=== PATIENT | male | born 1975 | race Caucasian/White ===

== ENCOUNTER 2016-04-11 12:38 | Inpatient (IN) | payer OTHER ==
[2016-04-11 17:07] VITALS: BMI 19.5
--- NOTE | 2016-04-11 18:30 | HP ---
CIWA Score - CIWA Score Nausea/Vomitin Muscle Tremors: 4-Moderate,w/Arms Extend Anxiety: 4-Mod. Anxious/Guarded Agitation: 4-Moderately Restless Paroxysmal Sweats: 3 Orientation: 1-Uncertain about Date Tacttile Disturbances: 0-None Auditory Disturbances: 0-None Visual Disturbances: 0-None Headache: 0-None Present CIWA-Ar Total Score: 18 Admission ROS BHS - HPI Chief Complaint: Withdrawal sx. Allergies/Adverse Reactions: Allergies Allergy/AdvReac Type Severity Reaction Status Date / Time No Known Allergies Allergy Verified 04/11/16 18:22 History of Present Illness: 40 y/o man with a long hx. of alcoholism is admitted for detox.Pt. has been in previous detox, denies significant sobriety Exam Limitations: No Limitations - Ebola screening Have you traveled outside of the country in the last 21 days: No Have you had contact with anyone from an Ebola affected area: No Have you been sick,other than usual withdrawal symptoms: No Do you have a fever: No - Review of Systems Constitutional: Diaphoresis EENT: reports: No Symptoms Reported Respiratory: reports: No Symptoms reported Cardiac: reports: No Symptoms Reported GI: reports: Nausea, Abdominal cramping : reports: No Symptoms Reported Musculoskeletal: reports: Back Pain, Joint Pain Integumentary: reports: Sweating Neuro: reports: Tremors Endocrine: reports: No Symptoms Reported Hematology: reports: No Symptoms Reported Psychiatric: reports: No Sypmtoms Reported Other Systems: Reviewed and Negative Patient History - Patient Medical History Hx Anemia: No Hx Asthma: No Hx Chronic Obstructive Pulmonary Disease (COPD): No Hx Cancer: No Hx Cardiac Disorders: No Hx Congestive Heart Failure: No Hx Hypertension: No Hx Hypercholesterolemia: No Hx Pacemaker: No HX Cerebrovascular Accident: No Hx Seizures: Yes Hx Dementia: No Hx Diabetes: No Hx Gastrointestinal Disorders: Yes (dyspepsia,on zantac) Hx Liver Disease: Yes (treated for Hep C) Hx Sexually Transmitted Disorders: No Hx Renal Disease (ESRD): No Hx Thyroid Disease: No Hx Human Immunodeficiency Virus (HIV): No Hx Hepatitis C: Yes (treated) Hx Depression: Yes Hx Suicide Attempt: Yes (cut wrist) Hx Bipolar Disorder: Yes Hx Schizophrenia: No (not sure) - Patient Surgical History Past Surgical History: Yes Other Surgical History: Skin graft rt. cva Anesthesia Reaction: No - PPD History Previous Implant?: Yes Documented Results: Negative w/o proof PPD to be Administered?: Yes - Smoking Cessation Smoking history: Current every day smoker Aproximately how many cigarettes per day: 20 Hx Chewing Tobacco Use: No Initiated information on smoking cessation: Yes 'Breaking Loose' booklet given: 04/11/16 - Substance & Tx. History Hx Alcohol Use: Yes Hx Substance Use: Yes Substance Use Type: Alcohol Hx Substance Use Treatment: Yes (detox,OTP) - Substances Abused Alcohol Route: Oral Frequency: Daily Amount used: Rum 1-2 pint, Beer 1 6packs Age of first use: 17 Date of Last Use: 04/11/16 Crack Route: Smoking Frequency: Daily Amount used: $60.00 Age of first use: 17 Date of Last Use: 04/11/16 Family Disease History - Family Disease History Family Disease History: Diabetes: Father, Heart Disease: Mother (HTN) Admission Physical Exam [facility] - Vital Signs Vital Signs: Vital Signs - 24 hr 04/11/16 17:06 Temperature 98.5 F Pulse Rate 78 Respiratory 18 Rate Blood Pressure 124/80 - Physical General Appearance: Yes: Tremorous, Irritable, Sweating, Anxious HEENTM: Yes: Within Normal Limits Respiratory: Yes: Chest Non-Tender, Wheezing (mild expiratory from smoking) Neck: Yes: Supple Breast: Yes: Breast Exam Deferred Cardiology: Yes: Regular Rhythm, Regular Rate, S1, S2 Abdominal: Yes: Normal Bowel Sounds, Non Tender, Soft Genitourinary: Yes: Within Normal Limits Back: Yes: Within Normal Limits Musculoskeletal: Yes: Within Normal Limits Extremities: Yes: Tremors Neurological: Yes: Fully Oriented, Alert Integumentary: Yes: Diaphoresis Lymphatic: Yes: Within Normal Limits - Diagnostic (1) Alcohol dependence with uncomplicated withdrawal Current Visit: Yes Status: Acute (2) Opioid dependence on agonist therapy Current Visit: Yes Status: Acute (3) Cocaine dependence, uncomplicated Current Visit: Yes Status: Acute (4) Seizure disorder Current Visit: Yes Status: Acute Cleared for Admission [facility] - Detox or Rehab [facility] Level of Care: Medically Managed Detox Regimen/Protocol: Librium [facility] Breath Alcohol Content Breath Alcohol Content: 0 Urine Drug Screen - Results Drug Screen Negative: No Urine Drug Screen Results: BARBARA-Cocaine, OPI-Opiates, MTD-Methadone
[2016-04-11] MEDS ORDERED: MAGNESIUM HYDROX 2400MG/30ML ORAL SUSPENSION 30 ML CUP PO PRN (18:45)
[2016-04-11] MEDS ORDERED: guaiFENesin/D-METHORPHAN HB 10 ML UNIT-DOSE CUPS PO PRN (18:45)
[2016-04-11] MEDS ORDERED: NICOTINE POLACRILEX 2 MG GUM BC PRN (18:45)
[2016-04-11] MEDS ORDERED: MAGNESIUM CITRATE 300 ML BOTTLE PO PRN (18:45)
[2016-04-11] MEDS ORDERED: LOPERAMIDE HCL 2 MG CAPSULE PO PRN (18:45)
[2016-04-11] MEDS ORDERED: chlordiazePOXIDE HCL 25 MG CAPSULE PO PRN (18:45)
[2016-04-11] MEDS ORDERED: MAG HYDROX/AL HYDROX/SIMETH 30 ML UNIT-DOSE CUP PO PRN (18:45)
[2016-04-11] MEDS ORDERED: ACETAMINOPHEN 325 MG TABLET (FP) PO PRN (18:45)
[2016-04-11] MEDS ORDERED: diphenhydrAMINE HCL 50 MG CAPSULE PO PRN (18:45)
[2016-04-11] MEDS ORDERED: P-EPHED 60MG/TRIPROLIDI 2.5MG TABLET PO PRN (18:45)
[2016-04-11] MEDS ORDERED: MENTHOL/PHENOL 1 EACH UD MM PRN (18:45)
[2016-04-11] MEDS ORDERED: ALBUTEROL SO4 6.7 GM HFA INHALER IH PRN (18:49)
[2016-04-11] MEDS ORDERED: chlordiazePOXIDE HCL 25 MG CAPSULE PO ONE (19:00)
[2016-04-11] MEDS: NICOTINE 21 MG/24 HOURS TOPICAL PATCH TD SCH (19:48)
[2016-04-11] MEDS ORDERED: DIVALPROEX SODIUM 500 MG TABLET E.C. PO SCH (22:00)
[2016-04-11] MEDS: chlordiazePOXIDE HCL 25 MG CAPSULE PO SCH (22:11)
[2016-04-11] MEDS: THIAMINE HCL 100 MG TABLET (FP) PO SCH (22:11)
[2016-04-11] MEDS: PHENYTOIN NA EXTENDED 100 MG CAPSULE (FP) PO SCH (22:11)
[2016-04-11] MEDS: ACLIDINIUM BROMIDE 400 MCG/INH AERO.POWD IH SCH (23:00)
[2016-04-11 23:18] LABS: URINE APPEARANCE CLEAR; URINE BILIRUBIN NEGATIVE (NEGATIVE); URINE BLOOD NEGATIVE (NEGATIVE); URINE COLOR LTYELLOW; URINE GLUCOSE (UA) NEGATIVE (NEGATIVE); URINE KETONE NEGATIVE (NEGATIVE); URINE LEUK ESTERASE NEGATIVE (NEGATIVE); URINE NITRITE NEGATIVE (NEGATIVE); URINE PROTEIN NEGATIVE (NEGATIVE); URINE UROBILINOGEN NEGATIVE E.U./dl (0.2-1.0)
[2016-04-12] MEDS: PHENYTOIN NA EXTENDED 100 MG CAPSULE (FP) PO SCH ×3 (05:42→22:28)
[2016-04-12] MEDS: chlordiazePOXIDE HCL 25 MG CAPSULE PO SCH ×4 (05:42→22:28)
--- NOTE | 2016-04-12 08:32 | CONSULT ---
[facility] Psychiatric Consult - Data Date of interview: 04/12/16 Admission source: [facility] Identifying data: This is 40 years old uruguayan speaking male male with history of Bipolar disorder intoxicated with: Alcohol, Cocaine and Opioids Substance Abuse History: Smoking history: Current every day smoker. Aproximately how many cigarettes per day: 20. Hx Chewing Tobacco Use: No. Initiated information on smoking cessation: Yes. 'Breaking Loose' booklet given : 04/11/16. - Substance & Tx. History. Hx Alcohol Use: Yes. Hx Substance Use : Yes. Substance Use Type: Alcohol. Hx Substance Use Treatment: Yes (detox,OTP ). - Substances Abused. Alcohol. Route: Oral. Frequency: Daily. Amount used: Rum 1-2 pint, Beer 1 6packs. Age of first use: 17. Date of Last Use: . Crack. Route: Smoking. Frequency: Daily. Amount used: $60.00. Age of first use: 17. Date of Last Use: 04/11/16 Medical History: Seizure history, Psychiatric History: Patient reports to carry Bipolar disorder with most recenmt psychiatric hospitalization at [facility], reports currently taking: Depakote 500mg po bid. Zoloft 50mg poqd. [id number] poqd Physical/Sexual Abuse/Trauma History: Denies Additional Comment: Depakote 500mg po bid. Zoloft 50mg poqd. [id number] poqd Mental Status Exam - Mental Status Exam Alert and Oriented to: Person Cognitive Function: Fair Patient Appearance: Well Groomed Mood: Anxious Affect: Mood Congruent Patient Behavior: Cooperative Speech Pattern: Appropriate Voice Loudness: Normal Thought Process: Goal Oriented Thought Disorder: Being Controlled Hallucinations: Denies Suicidal Ideation: Denies Homicidal Ideation: Denies Insight/Judgement: Fair Sleep: Difficulty falling asleep Appetite: Weight loss Muscle strength/Tone: Normal Gait/Station: Normal Additional Comments: Depakote 500mg po bid. Zoloft 50mg poqd. [id number] poqd Psychiatric Findings - Problem List (Alexander 1, 2,3) (1) Alcohol dependence with uncomplicated withdrawal Current Visit: Yes Status: Acute (2) Cocaine dependence, uncomplicated Current Visit: Yes Status: Acute (3) Opioid dependence on agonist therapy Current Visit: Yes Status: Acute (4) Bipolar disorder Current Visit: Yes Status: Acute (5) Drug-induced mood disorder Current Visit: Yes Status: Acute - Initial Treatment Plan Initial Treatment Plan: Depakote 500mg po bid. Zoloft 50mg poqd. [id number] poqd. Blood Depakote level
[2016-04-12 10:05] LABS: MCH 30.6 pg (25.7-33.7); MCHC 33.6 g/dl (32.0-35.9); MEAN CELL VOLUME 91.1 fl (80-96); MEAN PLT VOLUME 9.6 fl (7.5-11.1); PLATELET COUNT 145 K/MM3 (134-434); RDW 13.5 % (11.9-15.9); WHITE BLOOD COUNT 12.4 K/mm3 (4.0-10.0)
[2016-04-12 10:32] LABS: ALBUMIN 3.7 g/dl (3.4-5.0); ALK PHOS 60 U/L (45-117); ANION GAP 9 (8-16); BILIRUBIN,TOTAL 0.4 mg/dL (0.2-1.0); CALCIUM 8.7 mg/dL (8.5-10.1); CO2 28 mmol/L (21-32); CREATININE 0.8 mg/dL (0.7-1.3); GLUCOSE,RANDOM 81 mg/dL (74-106); SGOT/AST 16 U/L (15-37); SGPT/ALT 16 U/L (12-78); TOT PROT 6.9 g/dl (6.4-8.2)
[2016-04-12] MEDS: PRENATAL VITAMINS W/ FOLIC ACID TABLET (FP) PO SCH (11:40)
[2016-04-12] MEDS: SERTRALINE HCL 50 MG TABLET (FP) PO SCH (11:41)
[2016-04-12 11:42] LABS: VALPROIC ACID DEPAKOTE DEPAKAN 41.306 ug/ml (50-100)
[2016-04-12] MEDS: CITALOPRAM HYDROBROMIDE 10 MG TABLET (FP) PO SCH ×2 (11:42→12:30)
[2016-04-12] MEDS: NICOTINE 21 MG/24 HOURS TOPICAL PATCH TD SCH (11:57)
[2016-04-12] MEDS: ACLIDINIUM BROMIDE 400 MCG/INH AERO.POWD IH SCH ×2 (13:23→22:28)
[2016-04-12] MEDS ORDERED: METHADONE HCL 10 MG TABLET PO ONE (14:15)
[2016-04-12] MEDS ORDERED: METHADONE 80 MG, METHADONE 30 MG PO ONE (14:35)
[2016-04-12] MEDS ORDERED: METHADONE HCL 10 MG TABLET ONE (14:38)
[2016-04-12] MEDS ORDERED: METHADONE HCL 40 MG DISPERSABLE TABLET ONE (14:39)
--- NOTE | 2016-04-12 14:47 | PN ---
[facility] CIWA - CIWA Score Nausea/Vomitin-No Nausea/No Vomiting Muscle Tremors: 3 Anxiety: 3 Agitation: 3 Paroxysmal Sweats: 3 Orientation: 0-Oriented Tacttile Disturbances: 0-None Auditory Disturbances: 0-None Visual Disturbances: 0-None Headache: 0-None Present CIWA-Ar Total Score: 12 S Progress Note (SOAP) Subjective: sleepy sweats tired interrupted sleep Objective: 04/12/16 14:46 Vital Signs Temperature 99.1 F 04/12/16 13:54 Pulse Rate 82 04/12/16 13:54 Respiratory Rate 16 04/12/16 13:54 Blood Pressure 129/76 04/12/16 13:54 O2 Sat by Pulse Oximetry (%) Laboratory Tests 04/11/16 04/12/16 04/12/16 19:47 06:10 06:10 WBC 12.4 H RBC 4.31 Hgb 13.2 Hct 39.2 MCV 91.1 MCHC 33.6 RDW 13.5 Plt Count 145 MPV 9.6 Sodium 140 Potassium 4.6 Chloride 103 Carbon Dioxide 28 Anion Gap 9 BUN 11 Creatinine 0.8 Creat Clearance w eGFR > 60 Random Glucose 81 Calcium 8.7 Total Bilirubin 0.4 AST 16 ALT 16 Alkaline Phosphatase 60 Total Protein 6.9 Albumin 3.7 Urine Color Ltyellow Urine Appearance Clear Urine pH 7.0 Ur Specific [place] 1.009 Urine Protein Negative Urine Glucose (UA) Negative Urine Ketones Negative Urine Blood Negative Urine Nitrite Negative Urine Bilirubin Negative Urine Urobilinogen Negative Ur Leukocyte Esterase Negative Phenytoin Valproic Acid RPR Titer 04/12/16 04/12/16 06:10 06:20 WBC RBC Hgb Hct MCV MCHC RDW Plt Count MPV Sodium Potassium Chloride Carbon Dioxide Anion Gap BUN Creatinine Creat Clearance w eGFR Random Glucose Calcium Total Bilirubin AST ALT Alkaline Phosphatase Total Protein Albumin Urine Color Urine Appearance Urine pH Ur Specific [place] Urine Protein Urine Glucose (UA) Urine Ketones Urine Blood Urine Nitrite Urine Bilirubin Urine Urobilinogen Ur Leukocyte Esterase Phenytoin < 2.5 L Valproic Acid 41.306 L RPR Titer Nonreactive awake/alert ambulating no acute distress Assessment: 04/12/16 14:46 withdrawal sx Plan: continue detox increase fluids
--- NOTE | 2016-04-12 15:05 | EKG ---
Test Reason : Blood Pressure : / mmHG Vent. Rate : 053 BPM Atrial Rate : 053 BPM P-R Int : 168 ms QRS Dur : 094 ms QT Int : 486 ms P-R-T Axes : -16 -13 -08 degrees QTc Int : 456 ms POOR DATA QUALITY, INTERPRETATION MAY BE ADVERSELY AFFECTED SINUS BRADYCARDIA VOLTAGE CRITERIA FOR LEFT VENTRICULAR HYPERTROPHY NONSPECIFIC ST ABNORMALITY ABNORMAL ECG NO PREVIOUS ECGS AVAILABLE Confirmed by EJ BASSETT, ROLDAN ([id number]) on 04/12/2016 3:05:15 PM Referred By: Confirmed By:ROLDAN PAGAN MD
--- NOTE | 2016-04-12 15:08 | EKG ---
Test Reason : Blood Pressure : / mmHG Vent. Rate : 062 BPM Atrial Rate : 062 BPM P-R Int : 166 ms QRS Dur : 108 ms QT Int : 488 ms P-R-T Axes : 073 072 072 degrees QTc Int : 495 ms NORMAL SINUS RHYTHM POSSIBLE LEFT ATRIAL ENLARGEMENT LEFT VENTRICULAR HYPERTROPHY PROLONGED QT ABNORMAL ECG WHEN COMPARED WITH ECG OF 12-APR-2016 08:54, NO SIGNIFICANT CHANGE WAS FOUND Confirmed by EJ BASSETT, ROLDAN ([id number]) on 04/12/2016 3:07:31 PM Referred By: Confirmed By:ROLDAN PAGAN MD
[2016-04-12] MEDS: THIAMINE HCL 100 MG TABLET (FP) PO SCH (22:28)
[2016-04-12] MEDS: DIVALPROEX SODIUM 500 MG TABLET E.C. PO SCH (22:28)
[2016-04-13] MEDS ORDERED: METHADONE HCL 40 MG DISPERSABLE TABLET ONE (05:21)
[2016-04-13] MEDS ORDERED: METHADONE HCL 10 MG TABLET ONE (05:21)
[2016-04-13] MEDS: METHADONE 80 MG, METHADONE 30 MG PO SCH (05:50)
[2016-04-13] MEDS: PHENYTOIN NA EXTENDED 100 MG CAPSULE (FP) PO SCH ×3 (05:51→22:26)
[2016-04-13] MEDS: chlordiazePOXIDE HCL 25 MG CAPSULE PO SCH ×3 (05:51→17:36)
[2016-04-13] MEDS ORDERED: METHADONE HCL 10 MG TABLET PO SCH (06:00)
--- NOTE | 2016-04-13 09:01 | PN ---
[facility] CIWA - CIWA Score Nausea/Vomitin Muscle Tremors: 3 Anxiety: 3 Agitation: 2 Paroxysmal Sweats: 1-Minimal Palms Moist Orientation: 0-Oriented Tacttile Disturbances: 1-Very Mild Itch/Numbness Auditory Disturbances: 1-Very Mild Visual Disturbances: 1-Very Mild Sensitivity Headache: 2-Mild CIWA-Ar Total Score: 17 BHS Progress Note (SOAP) Subjective: ALERT,IRRITABLE,ANXIOUS,INTERRUPTED SLEEP,TREMOR Objective: 04/13/16 08:59 Vital Signs Temperature 98.2 F 04/13/16 06:30 Pulse Rate 61 04/13/16 06:30 Respiratory Rate 16 04/13/16 06:30 Blood Pressure 98/61 04/13/16 06:30 O2 Sat by Pulse Oximetry (%) Laboratory Last Values WBC 12.4 K/mm3 (4.0-10.0) H 04/12/16 06:10 RBC 4.31 M/mm3 (4.00-5.60) 04/12/16 06:10 Hgb 13.2 GM/dL (11.7-16.9) 04/12/16 06:10 Hct 39.2 % (35.4-49) 04/12/16 06:10 MCV 91.1 fl (80-96) 04/12/16 06:10 MCHC 33.6 g/dl (32.0-35.9) 04/12/16 06:10 RDW 13.5 % (11.9-15.9) 04/12/16 06:10 Plt Count 145 K/MM3 (134-434) 04/12/16 06:10 MPV 9.6 fl (7.5-11.1) 04/12/16 06:10 Sodium 140 mmol/L (136-145) 04/12/16 06:10 Potassium 4.6 mmol/L (3.5-5.1) 04/12/16 06:10 Chloride 103 mmol/L (98-107) 04/12/16 06:10 Carbon Dioxide 28 mmol/L (21-32) 04/12/16 06:10 Anion Gap 9 (8-16) 04/12/16 06:10 BUN 11 mg/dL (7-18) 04/12/16 06:10 Creatinine 0.8 mg/dL (0.7-1.3) 04/12/16 06:10 Creat Clearance w eGFR > 60 (>60) 04/12/16 06:10 Random Glucose 81 mg/dL (74-106) 04/12/16 06:10 Calcium 8.7 mg/dL (8.5-10.1) 04/12/16 06:10 Total Bilirubin 0.4 mg/dL (0.2-1.0) 04/12/16 06:10 AST 16 U/L (15-37) 04/12/16 06:10 ALT 16 U/L (12-78) 04/12/16 06:10 Alkaline Phosphatase 60 U/L (45-117) 04/12/16 06:10 Total Protein 6.9 g/dl (6.4-8.2) 04/12/16 06:10 Albumin 3.7 g/dl (3.4-5.0) 04/12/16 06:10 Urine Color Ltyellow 04/11/16 19:47 Urine Appearance Clear 04/11/16 19:47 Urine pH 7.0 (5.0-8.0) 04/11/16 19:47 Ur Specific [place] 1.009 (1.001-1.035) 04/11/16 19:47 Urine Protein Negative (NEGATIVE) 04/11/16 19:47 Urine Glucose (UA) Negative (NEGATIVE) 04/11/16 19:47 Urine Ketones Negative (NEGATIVE) 04/11/16 19:47 Urine Blood Negative (NEGATIVE) 04/11/16 19:47 Urine Nitrite Negative (NEGATIVE) 04/11/16 19:47 Urine Bilirubin Negative (NEGATIVE) 04/11/16 19:47 Urine Urobilinogen Negative E.U./dl (0.2-1.0) 04/11/16 19:47 Ur Leukocyte Esterase Negative (NEGATIVE) 04/11/16 19:47 Phenytoin < 2.5 ug/ml (10.0-20.0) L 04/12/16 06:10 Valproic Acid 41.306 ug/ml (50-100) L 04/12/16 06:10 RPR Titer Nonreactive (NONREACTIVE) 04/12/16 06:20 Hepatitis C Antibody >11.0 s/co ratio (0.0-0.9) H 04/12/16 06:10 Assessment: 04/13/16 09:00 WITHDRAWAL SYMPTOM Plan: CONTINUE DETOX,DILANTIN 300 MGS PO NOW THEN TID,DILANTIN LEVEL IS LOW 2.5, SEIZURE PRECAUTION, EXPLAIN TO PATIENT THE TEST FOR HEPATITIS C IS POSTIVE,PATIENT WILL GO TO SEE HES PMD AT [facility] FOR FOLLOW UP AND EVALUATION UPON DISCHARGE, REPEAT CBC,DILANTIN LEVEL IN AM
[2016-04-13] MEDS ORDERED: PHENYTOIN NA EXTENDED 100 MG CAPSULE (FP) PO ONE (09:12)
[2016-04-13] MEDS: PRENATAL VITAMINS W/ FOLIC ACID TABLET (FP) PO SCH (10:13)
[2016-04-13] MEDS: CITALOPRAM HYDROBROMIDE 10 MG TABLET (FP) PO SCH (10:13)
[2016-04-13] MEDS: SERTRALINE HCL 50 MG TABLET (FP) PO SCH (10:13)
[2016-04-13] MEDS: NICOTINE 21 MG/24 HOURS TOPICAL PATCH TD SCH (10:15)
[2016-04-13] MEDS: ACLIDINIUM BROMIDE 400 MCG/INH AERO.POWD IH SCH ×2 (10:15→22:24)
[2016-04-13] MEDS: chlordiazePOXIDE 5 MG CAPSULE PO SCH (22:24)
[2016-04-13] MEDS: DIVALPROEX SODIUM 500 MG TABLET E.C. PO SCH (22:25)
[2016-04-13] MEDS: THIAMINE HCL 100 MG TABLET (FP) PO SCH (22:26)
[2016-04-13] MEDS: IBUPROFEN 400 MG TABLET (FP) PO PRN (22:29)
[2016-04-14] MEDS ORDERED: METHADONE HCL 40 MG DISPERSABLE TABLET ONE (05:17)
[2016-04-14] MEDS ORDERED: METHADONE HCL 10 MG TABLET ONE (05:17)
[2016-04-14] MEDS: METHADONE 80 MG, METHADONE 30 MG PO SCH (05:18)
[2016-04-14] MEDS: chlordiazePOXIDE 5 MG CAPSULE PO SCH ×3 (05:18→18:02)
[2016-04-14] MEDS: PHENYTOIN NA EXTENDED 100 MG CAPSULE (FP) PO SCH ×3 (05:18→22:03)
[2016-04-14 10:09] LABS: MCH 30.4 pg (25.7-33.7); MCHC 33.1 g/dl (32.0-35.9); MEAN PLT VOLUME 9.2 fl (7.5-11.1); PLATELET COUNT 165 K/MM3 (134-434); RDW 13.5 % (11.9-15.9); WHITE BLOOD COUNT 6.5 K/mm3 (4.0-10.0)
[2016-04-14] MEDS: SERTRALINE HCL 50 MG TABLET (FP) PO SCH (10:12)
[2016-04-14] MEDS: PRENATAL VITAMINS W/ FOLIC ACID TABLET (FP) PO SCH (10:12)
[2016-04-14] MEDS: CITALOPRAM HYDROBROMIDE 10 MG TABLET (FP) PO SCH (10:12)
[2016-04-14] MEDS: ACLIDINIUM BROMIDE 400 MCG/INH AERO.POWD IH SCH ×2 (10:13→22:03)
[2016-04-14] MEDS: NICOTINE 21 MG/24 HOURS TOPICAL PATCH TD SCH (10:13)
--- NOTE | 2016-04-14 10:31 | PN ---
S Progress Note (SOAP) Subjective: Right flank pain, N/V, generalized muscle ache, headache Objective: 04/14/16 10:28 Vital Signs 04/14/16 04/14/16 03:30 06:00 Temperature 97.7 F Pulse Rate 62 Respiratory 18 18 Rate Blood Pressure 112/60 Laboratory Last Values WBC 6.5 K/mm3 (4.0-10.0) D 04/14/16 07:40 RBC 4.44 M/mm3 (4.00-5.60) 04/14/16 07:40 Hgb 13.5 GM/dL (11.7-16.9) 04/14/16 07:40 Hct 40.8 % (35.4-49) 04/14/16 07:40 MCV 92.0 fl (80-96) 04/14/16 07:40 MCHC 33.1 g/dl (32.0-35.9) 04/14/16 07:40 RDW 13.5 % (11.9-15.9) 04/14/16 07:40 Plt Count 165 K/MM3 (134-434) 04/14/16 07:40 MPV 9.2 fl (7.5-11.1) 04/14/16 07:40 Sodium 140 mmol/L (136-145) 04/12/16 06:10 Potassium 4.6 mmol/L (3.5-5.1) 04/12/16 06:10 Chloride 103 mmol/L (98-107) 04/12/16 06:10 Carbon Dioxide 28 mmol/L (21-32) 04/12/16 06:10 Anion Gap 9 (8-16) 04/12/16 06:10 BUN 11 mg/dL (7-18) 04/12/16 06:10 Creatinine 0.8 mg/dL (0.7-1.3) 04/12/16 06:10 Creat Clearance w eGFR > 60 (>60) 04/12/16 06:10 Random Glucose 81 mg/dL (74-106) 04/12/16 06:10 Calcium 8.7 mg/dL (8.5-10.1) 04/12/16 06:10 Total Bilirubin 0.4 mg/dL (0.2-1.0) 04/12/16 06:10 AST 16 U/L (15-37) 04/12/16 06:10 ALT 16 U/L (12-78) 04/12/16 06:10 Alkaline Phosphatase 60 U/L (45-117) 04/12/16 06:10 Total Protein 6.9 g/dl (6.4-8.2) 04/12/16 06:10 Albumin 3.7 g/dl (3.4-5.0) 04/12/16 06:10 Urine Color Ltyellow 04/11/16 19:47 Urine Appearance Clear 04/11/16 19:47 Urine pH 7.0 (5.0-8.0) 04/11/16 19:47 Ur Specific [place] 1.009 (1.001-1.035) 04/11/16 19:47 Urine Protein Negative (NEGATIVE) 04/11/16 19:47 Urine Glucose (UA) Negative (NEGATIVE) 04/11/16 19:47 Urine Ketones Negative (NEGATIVE) 04/11/16 19:47 Urine Blood Negative (NEGATIVE) 04/11/16 19:47 Urine Nitrite Negative (NEGATIVE) 04/11/16 19:47 Urine Bilirubin Negative (NEGATIVE) 04/11/16 19:47 Urine Urobilinogen Negative E.U./dl (0.2-1.0) 04/11/16 19:47 Ur Leukocyte Esterase Negative (NEGATIVE) 04/11/16 19:47 Phenytoin < 2.5 ug/ml (10.0-20.0) L 04/12/16 06:10 Valproic Acid 66.148 ug/ml (50-100) 04/13/16 09:40 RPR Titer Nonreactive (NONREACTIVE) 04/12/16 06:20 Hepatitis C Antibody >11.0 s/co ratio (0.0-0.9) H 04/12/16 06:10 Labs noted, ecchymotic areas on the face Assessment: 04/14/16 10:29 withdrawal sx Plan: continue detox
[2016-04-14] MEDS: IBUPROFEN 400 MG TABLET (FP) PO PRN (13:11)
[2016-04-14] MEDS: chlordiazePOXIDE HCL 10 MG CAPSULE PO SCH (22:02)
[2016-04-14] MEDS: DIVALPROEX SODIUM 500 MG TABLET E.C. PO SCH (22:02)
[2016-04-14] MEDS: THIAMINE HCL 100 MG TABLET (FP) PO SCH (22:03)
[2016-04-15] MEDS: IBUPROFEN 400 MG TABLET (FP) PO PRN (02:44)
[2016-04-15] MEDS ORDERED: METHADONE HCL 10 MG TABLET ONE (03:16)
[2016-04-15] MEDS ORDERED: METHADONE HCL 40 MG DISPERSABLE TABLET ONE (03:17)
[2016-04-15] MEDS: chlordiazePOXIDE HCL 10 MG CAPSULE PO SCH (05:57)
[2016-04-15] MEDS: PHENYTOIN NA EXTENDED 100 MG CAPSULE (FP) PO SCH (05:58)
[2016-04-15] MEDS: METHADONE 80 MG, METHADONE 30 MG PO SCH (05:59)
--- NOTE | 2016-04-15 09:42 | DS ---
[facility] Detox Discharge Summary Admission Date: 04/11/16 Discharge Date: 04/15/16 - History Present History: Alcohol Dependence, Cocaine Dependence, MMTP - Physical Exam Results Vital Signs: Vital Signs Temperature 97.7 F 04/15/16 06:00 Pulse Rate 61 04/15/16 06:00 Respiratory Rate 18 04/15/16 06:00 Blood Pressure 109/58 04/15/16 06:00 O2 Sat by Pulse Oximetry (%) Laboratory Last Values WBC 6.5 K/mm3 (4.0-10.0) D 04/14/16 07:40 RBC 4.44 M/mm3 (4.00-5.60) 04/14/16 07:40 Hgb 13.5 GM/dL (11.7-16.9) 04/14/16 07:40 Hct 40.8 % (35.4-49) 04/14/16 07:40 MCV 92.0 fl (80-96) 04/14/16 07:40 MCHC 33.1 g/dl (32.0-35.9) 04/14/16 07:40 RDW 13.5 % (11.9-15.9) 04/14/16 07:40 Plt Count 165 K/MM3 (134-434) 04/14/16 07:40 MPV 9.2 fl (7.5-11.1) 04/14/16 07:40 Sodium 140 mmol/L (136-145) 04/12/16 06:10 Potassium 4.6 mmol/L (3.5-5.1) 04/12/16 06:10 Chloride 103 mmol/L (98-107) 04/12/16 06:10 Carbon Dioxide 28 mmol/L (21-32) 04/12/16 06:10 Anion Gap 9 (8-16) 04/12/16 06:10 BUN 11 mg/dL (7-18) 04/12/16 06:10 Creatinine 0.8 mg/dL (0.7-1.3) 04/12/16 06:10 Creat Clearance w eGFR > 60 (>60) 04/12/16 06:10 Random Glucose 81 mg/dL (74-106) 04/12/16 06:10 Calcium 8.7 mg/dL (8.5-10.1) 04/12/16 06:10 Total Bilirubin 0.4 mg/dL (0.2-1.0) 04/12/16 06:10 AST 16 U/L (15-37) 04/12/16 06:10 ALT 16 U/L (12-78) 04/12/16 06:10 Alkaline Phosphatase 60 U/L (45-117) 04/12/16 06:10 Total Protein 6.9 g/dl (6.4-8.2) 04/12/16 06:10 Albumin 3.7 g/dl (3.4-5.0) 04/12/16 06:10 Urine Color Ltyellow 04/11/16 19:47 Urine Appearance Clear 04/11/16 19:47 Urine pH 7.0 (5.0-8.0) 04/11/16 19:47 Ur Specific [place] 1.009 (1.001-1.035) 04/11/16 19:47 Urine Protein Negative (NEGATIVE) 04/11/16 19:47 Urine Glucose (UA) Negative (NEGATIVE) 04/11/16 19:47 Urine Ketones Negative (NEGATIVE) 04/11/16 19:47 Urine Blood Negative (NEGATIVE) 04/11/16 19:47 Urine Nitrite Negative (NEGATIVE) 04/11/16 19:47 Urine Bilirubin Negative (NEGATIVE) 04/11/16 19:47 Urine Urobilinogen Negative E.U./dl (0.2-1.0) 04/11/16 19:47 Ur Leukocyte Esterase Negative (NEGATIVE) 04/11/16 19:47 Phenytoin 3.9 ug/ml (10.0-20.0) L D 04/14/16 07:40 Valproic Acid 66.148 ug/ml (50-100) 04/13/16 09:40 RPR Titer Nonreactive (NONREACTIVE) 04/12/16 06:20 Hepatitis C Antibody >11.0 s/co ratio (0.0-0.9) H 04/12/16 06:10 labs noted - Treatment Hospital Course: Detox Protocol Followed, Detoxed Safely, Responded well, Discharged Condition Good - Medication Discharge Medications: Ambulatory Orders Divalproex [Depakote -] 500 mg PO BID 04/11/16 Phenytoin Na Extended [Dilantin -] 100 mg PO TID 04/11/16 Citalopram Hydrobromide [Celexa -] 10 mg PO DAILY #30 tablet 04/12/16 Divalproex [Depakote -] 500 mg PO BID #60 tablet.ec 04/12/16 Sertraline HCl [Zoloft -] 50 mg PO DAILY #30 tablet 04/12/16 - Diagnosis (1) Bipolar disorder Current Visit: Yes Status: Acute (2) Cocaine dependence, uncomplicated Current Visit: Yes Status: Acute (3) Drug-induced mood disorder Current Visit: Yes Status: Acute (4) Opioid dependence on agonist therapy Current Visit: Yes Status: Acute (5) Seizure disorder Current Visit: Yes Status: Acute - AMA Did Patient Leave Against Medical Advice: No
[2016-04-15 10:06] VITALS: BP 116/75; PULSE 81; TEMP 98.1
== END 2016-04-15 09:35 | disposition home or self-care (01) | DRG 773 ==
LOC: YASAS 12:38 → Y6N 19:00
PROVIDERS: ADMIT Internal Medicine Addiction Medicine; ATTEND Internal Medicine Addiction Medicine
PROC: HZ2ZZZZ Detoxification Services for Substance Abuse Treatment (ICD-10-PCS; principal; 2016-04-15)
DX: F11.20 Opioid dependence, uncomplicated (principal); F10.230 Alcohol dependence with withdrawal, uncomplicated; F14.20 Cocaine dependence, uncomplicated; F17.210 Nicotine dependence, cigarettes, uncomplicated; F19.24 Other psychoactive substance dependence with psychoactive substance-induced mood disorder; F32.9 Major depressive disorder, single episode, unspecified; G40.909 Epilepsy, unspecified, not intractable, without status epilepticus
CPT/HCPCS: 36415; 71020-TC; 80053; 80164; 80185; 81003; 85027; 86593; 87522; 93005; 93010

== ENCOUNTER 2021-01-20 11:00 | Inpatient (IN) | payer OTHER ==
[2021-01-20] MEDS ORDERED: ACETAMINOPHEN 325 MG TABLET (FP) PO PRN (11:51)
[2021-01-20] MEDS ORDERED: LOPERAMIDE HCL 2 MG CAPSULE PO PRN (11:51)
[2021-01-20] MEDS ORDERED: MAG HYDROX/AL HYDROX/SIMETH 30 ML UNIT-DOSE CUP PO PRN (11:51)
[2021-01-20] MEDS ORDERED: MAGNESIUM HYDROX 2400MG/30ML ORAL SUSPENSION 30 ML CUP PO PRN (11:51)
[2021-01-20] MEDS ORDERED: P-EPHED 60MG/TRIPROLIDI 2.5MG TABLET PO PRN (11:51)
[2021-01-20] MEDS ORDERED: NICOTINE 10 MG CARTRIDGE (INHALER) IH PRN (11:51)
[2021-01-20] MEDS ORDERED: MAGNESIUM CITRATE 300 ML BOTTLE PO PRN (11:51)
[2021-01-20] MEDS ORDERED: guaiFENesin 200 MG/10 ML 10 ML UNIT-DOSE CUPS PO PRN (11:51)
[2021-01-20] MEDS ORDERED: NICOTINE 7 MG/24 HOURS TOPICAL PATCH TD SCH (12:00)
[2021-01-20] MEDS ORDERED: NICOTINE 14 MG/24 HOURS TOPICAL PATCH TD SCH (13:30)
[2021-01-20] MEDS ORDERED: hydrOXYzine PAMOATE 25 MG CAPSULE (FP) PO SCH (14:00)
[2021-01-20 14:19] VITALS: BMI 21.8
[2021-01-20] MEDS: PRENATAL VITAMINS W/ FOLIC ACID TABLET (FP) PO SCH (14:29)
[2021-01-20] MEDS ORDERED: hydrOXYzine PAMOATE 25 MG CAPSULE (FP) PO PRN (15:03)
[2021-01-20] MEDS: PHENYTOIN NA EXTENDED 100 MG CAPSULE (FP) PO SCH ×2 (15:35→21:23)
[2021-01-20 18:24] LABS: HEMATOCRIT 38.6 % (35.4-49); HEMOGLOBIN 13.1 GM/dL (11.7-16.9); MCH 30.5 pg (25.7-33.7); MCHC 33.9 g/dl (32.0-35.9); MEAN CELL VOLUME 89.7 fl (80-96); MEAN PLT VOLUME 8.5 fl (7.5-11.1); PLATELET COUNT 267 10^3/uL (134-434); RDW 14.7 % (11.9-15.9)
[2021-01-20 18:32] LABS: ALBUMIN 3.3 g/dl (3.4-5.0); BLOOD UREA NITROGEN 7.9 mg/dL (7-18); CALCIUM 8.4 mg/dL (8.5-10.1)
[2021-01-20 18:35] LABS: CREATININE 0.7 mg/dL (0.55-1.3)
[2021-01-20 18:37] LABS: BILIRUBIN,TOTAL 0.4 mg/dL (0.2-1); TOT PROT 6.7 g/dl (6.4-8.2)
[2021-01-20 18:52] LABS: SYPHILIS W/ RPR CONF NON-REACTIVE (NONREACTIVE)
[2021-01-20] MEDS ORDERED: PT OWN MED DRAWER 7, Y5N ONE (20:51)
[2021-01-20] MEDS: IBUPROFEN 400 MG TABLET (FP) PO PRN (21:23)
[2021-01-20] MEDS: DIVALPROEX SODIUM 500 MG TABLET E.C. PO SCH (21:23)
[2021-01-20] MEDS ORDERED: MELATONIN 5 MG TABLETS PO SCH (22:00)
[2021-01-20] MEDS ORDERED: THIAMINE HCL 100 MG TABLET (FP) PO SCH (22:00)
[2021-01-21] MEDS ORDERED: methaDONE HCL 10 MG TABLET PO SCH (06:00)
[2021-01-21] MEDS ORDERED: methaDONE HCL 10 MG TABLET ONE (06:23)
[2021-01-21] MEDS ORDERED: methaDONE HCL 40 MG DISPERSABLE TABLET ONE (06:24)
[2021-01-21] MEDS: PHENYTOIN NA EXTENDED 100 MG CAPSULE (FP) PO SCH (06:25)
[2021-01-21 07:47] VITALS: BP 129/73; PULSE 60; TEMP 98.1
[2021-01-21] MEDS: IBUPROFEN 400 MG TABLET (FP) PO PRN (08:21)
[2021-01-21] MEDS: DIVALPROEX SODIUM 500 MG TABLET E.C. PO SCH (10:45)
[2021-01-21] MEDS: PRENATAL VITAMINS W/ FOLIC ACID TABLET (FP) PO SCH (10:45)
[2021-01-21] MEDS ORDERED: PT OWN MED DRAWER 7, Y5N ONE (13:11)
[2021-01-21 13:15] LABS: URINE APPEARANCE CLEAR; URINE BILIRUBIN NEGATIVE (NEGATIVE); URINE COLOR YELLOW; URINE GLUCOSE (UA) NEGATIVE (NEGATIVE); URINE KETONE NEGATIVE (NEGATIVE); URINE LEUK ESTERASE NEGATIVE (NEGATIVE); URINE NITRITE NEGATIVE (NEGATIVE); URINE PROTEIN NEGATIVE (NEGATIVE); URINE UROBILINOGEN 0.2 mg/dL (0.2-1.0)
== END 2021-01-21 13:20 | disposition left against medical advice (07) | DRG 770 ==
LOC: YASAS 11:00 → Y3E 12:50
PROVIDERS: ADMIT Allergy & Immunology; ATTEND Allergy & Immunology
PROC: HZ42ZZZ Group Counseling for Substance Abuse Treatment, Cognitive-Behavioral (ICD-10-PCS; principal; 2021-01-20)
DX: F10.20 Alcohol dependence, uncomplicated (principal); F11.20 Opioid dependence, uncomplicated; F14.20 Cocaine dependence, uncomplicated; F19.24 Other psychoactive substance dependence with psychoactive substance-induced mood disorder; F19.282 Other psychoactive substance dependence with psychoactive substance-induced sleep disorder; F31.9 Bipolar disorder, unspecified; G40.909 Epilepsy, unspecified, not intractable, without status epilepticus; Z56.0 Unemployment, unspecified
CPT/HCPCS: 36415; 80053; 80164; 81003; 85027; 86780; 86803; 87522; 87811; C9803; U0003; U0005